=== PATIENT | male | born 1970 | race Caucasian/White ===

== ENCOUNTER 2021-03-07 12:09 | Emergency (ER) | payer OTHER ==
[~2021-03-07] VITALS: Ht 175.3 cm; Wt 68.0 kg
[2021-03-07] MEDS ORDERED: MORPHINE SULFATE 4 MG/ML CPJ (NOT FOR IM USE) IV ONE (12:45)
[2021-03-07] MEDS ORDERED: ACETAMINOPHEN 325MG TABLET PO ONE (13:30)
[2021-03-07] MEDS ORDERED: IBUPROFEN 400MG TABLET PO ONE (13:30)
[2021-03-07] MEDS ORDERED: HYDROCODONE/ACETAMINOPHEN 5/325MG TABLET PO ONE (13:30)
[2021-03-07] MEDS ORDERED: HYDR-4346 MT (14:41)
[2021-03-07 14:54] VITALS: BP 110/75
== END 2021-03-07 15:05 | disposition home or self-care (01) ==
LOC: ER 14:14
DX: S43.085A Other dislocation of left shoulder joint, initial encounter (principal); W10.8XXA Fall (on) (from) other stairs and steps, initial encounter; Y93.89 Activity, other specified; Y92.018 Other place in single-family (private) house as the place of occurrence of the external cause
CPT/HCPCS: 23650; 73020; 73030; 99284; J2270; A4565